=== PATIENT | female | born 1930 | race African-American/Black ===

== ENCOUNTER 2018-05-15 12:47 | Outpatient (CLI) | payer MEDICARE, OTHER ==
--- NOTE | 2018-05-15 14:04 | RAD ---
LUMBAR SPINE FOUR VIEWS: History: Spinal stenosis. M48.061 FINDINGS: AP, lateral, flexion and extension views of the lumbar spine obtained. There is an area of calcification seen on the AP view adjacent to the right iliac crest. The etiology and source of this calcification is unknown as I do not definitely visualize this on the lateral vie w. Further workup using CT may be of use to evaluate whether this is within the gallbladder or may be an area of aneurysmal calcification. The four views of the lumbar spine demonstrate disc space height loss at L2-3 and L3-4 levels. There is mild anterolisthesis of L3 on L4 on the flexion view measuring up to 6.6 mm on the flexion view. T he anterolisthesis on the neutral and extension views of L3 on L4 measures approximately 2 mm. No evidence of acute lumbar spine fractures seen. IMPRESSION: Anterolisthesis of L3 on L4. POS: [facility]
== END 2018-05-15 12:48 | disposition home or self-care (01) ==
LOC: TBSIIMAG 12:47
PROVIDERS: ATTEND Surgery
DX: M48.061 Spinal stenosis, lumbar region without neurogenic claudication (principal); M43.16 Spondylolisthesis, lumbar region
CPT/HCPCS: 72110